=== PATIENT | male | born 1965 | race Caucasian/White ===

== ENCOUNTER 2017-01-18 16:39 | Emergency (ER) | payer OTHER | END 2017-01-18 19:22 | disposition home or self-care (01) | LOC: CFTX 16:39 → CED 16:39 → CFTX 19:01 | DX: S61.411A Laceration without foreign body of right hand, initial encounter (principal); Z87.891 Personal history of nicotine dependence; W45.8XXA Other foreign body or object entering through skin, initial encounter; Y92.009 Unspecified place in unspecified non-institutional (private) residence as the place of occurrence of the external cause | CPT/HCPCS: 12002; 99283 ==